=== PATIENT | female | born 1970 | race African-American/Black ===

== ENCOUNTER 2021-12-28 09:27 | Emergency (ER) | payer SELFPAY ==
[2021-12-28 10:15] VITALS: BP 195/103; PULSE 87; RESP 15; O2SAT 97
--- NOTE | 2021-12-28 10:30 | PC.PHAR ---
pt states she is on her last day of her metformin 500mg bid and lisinopril 20mg daily-pt states she has been out for months on the atorvastatin 10mg hs (ext shows 09/01/21)-glipizide 10mg bid-amlodipine 5mg daily-and hctz 25mg daily ext med history shows last filled 07/03/21 for 30d/s-pt states she buys her insulin at [facility]-pt states since she has been out of the hctz she has been buying otc water pill from [facility]-notes are made in the pharmacy comments
--- NOTE | 2021-12-28 11:03 | ED_ITS ---
HPI - Recheck/Abnormal Lab/Rx General: Chief Complaint: Recheck/Abnormal Lab/Rx Stated Complaint: RX Refill Time Seen by Provider: 12/28/21 09:33 History of Present Illness: Ms. Ceja is a 51-year-old lady with history of hypertension, hyperlipidemia, diabetes who presents to the emergency department due to dental pain and need for medication refill. Dental issues have been longstanding for the patient however pain has been worse for a few days. Mild to moderate in intensity worse with eating. Primarily lower molar region of the mandible. No trismus, fevers, spread of symptoms. Has not seen a dentist in some time. Additionally patient reports that she is currently in town traveling for work and therefore has not been to her PCP for medication refill. She is having difficulty obtaining insurance. She will be in town here another few weeks and then going to [place]. Denies headaches or chest pain associated with high blood pressure. Denies signs of DKA. No other specific changes in health, exacerbating, or alleviating factors identified. Returns today for: request for prescription Symptoms since prior visit: no new symptoms Review of Systems General: Reports: 10 or more systems reviewed and unremarkable except in HPI and below PFSH ED PFSH: Medical History Diabetes Hyperlipidemia Hypertension Physical Exam Const: COMMON NORMALS: alert GENERAL APPEARANCE: cooperative and well developed HENMT: COMMON NORMALS: normocephalic and atraumatic HEAD & SCALP: normocephalic and atraumatic THROAT: posterior oropharynx normal OTHER: Poor dentition with multiple dental caries and severely eroded teeth. Posterior left mandibular molars with localized gum irritation concerning for infection as sociated with dental caries. No obvious drainable fluid collection or abscess. Eye: COMMON NORMALS: conjunctivae normal CONJUNCTIVA: Yes conjunctivae normal SCLERA: sclerae normal Neck/C-Spine: COMMON NORMALS: supple GENERAL: Yes trachea midline Resp: COMMON NORMALS: normal respiratory effort and clear to auscultation bilaterally EFFORT & INSPECTION: Yes able to speak in complete sentences AUSCULTATION: clear to auscultation bilaterally Cardio: COMMON NORMALS: regular rate and regular rhythm RATE: regular rate RHYTHM: regular rhythm GI: COMMON NORMALS: Soft to palpation PALPATION: Yes Soft to palpation and No Tenderness to palpation present (GI) Extremity: GENERAL: Yes normal exam except as noted and No edema Neuro: COMMON NORMALS: moves all extremities SENSORIUM/ORIENTATION: Yes alert and No Orientation impaired Psych: COMMON NORMALS: mental status grossly normal and Normal thought process present THOUGHT PROCESS: Normal thought process present Course Vital Signs: Vital signs: Vital Signs Pulse Rate 81 12/28/21 11:51 Respiratory Rate 15 12/28/21 11:51 Blood Pressure 158/77 12/28/21 11:51 Pulse Oximetry 99 12/28/21 11:51 MDM - Recheck/Abnormal Lab/Rx Medical Decision Making 51-year-old lady presenting for concern over medication refill and dental caries. Challenging situation as the patient has been on the road for multiple months for work. Typically she is from [place] and doctors there. She reports difficulty getting insurance and establishing with a primary care provider given her travel. Denies symptoms associated with uncontrolled hypertension or uncontrolled diabetes. I reinforced the need for PCP follow-up however I believe that this will continue to be a challenge and therefore will refill 1 month supply of patient medications. Satisfactory for continued outpatient management. Medical Records I reviewed the patient's medical records. Lab Data I reviewed the patient's lab results. Discharge Plan Discharge Patient Disposition: Home Clinical Impression: Infected dental caries, Encounter for medication refill Condition: Stable Prescriptions: New amoxicillin-pot clavulanate 875-125 mg tablet 1 tab PO BID Qty: 14 0RF Continued metformin 500 mg tablet 500 mg PO BID 30 Days Qty: 60 0RF atorvastatin 10 mg tablet 10 mg PO BEDTIME 30 Days Qty: 30 0RF Rx Instructions: pt states been out for around 2 months lisinopril 20 mg tablet 20 mg PO QAM 30 Days Qty: 30 0RF glipizide 10 mg tablet 10 mg PO BID 30 Days Qty: 60 0RF Rx Instructions: pt states been out for months amlodipine 5 mg tablet 5 mg PO DAILY 30 Days Qty: 30 0RF Rx Instructions: pt states been out for months aspirin 81 mg Tablet,Delayed Release (Dr/Ec) 81 mg PO QAM 30 Days Qty: 30 0RF Fiber-Tabs 625 mg Tablet 625 mg PO DAILY 30 Days Qty: 30 0RF hydrochlorothiazide 25 mg tablet 25 mg PO DAILY 30 Days Qty: 30 0RF Rx Instructions: pt states been out for months Diurex 162.5-50 mg Tablet 1 tab PO QAM 30 Days Qty: 30 0RF Relion Novolin R 20 unit SUBCUT BID 30 Days Qty: 1200 0RF Rx Instructions: before breakfast and dinner Discharge Orders: Discharge ED (Routine); Ordered 12/28/21 Ordered By: Edu Jamil Discharge Diet: Usual diet Discharge Activity: Increase activity as tolerated Patient Instructions: Toothache (ED), Hypertension and Diabetes (ED) Activity Restrictions/Additional Instructions: Thank you for visiting the emergency department. You were seen and evaluated for need of medication refills at [facility]. The tooth ache does appear to have mild amount of local infection and you will be treated with antibiotics. I will refill your prescriptions for the chronic medications that you take. It is essential that you establish and follow-up with your primary care provider as many of these medications require long-term monitoring I recommend having blood work drawn in 1 week to ensure that your kidney function and electrolytes are normal. Given that you have been out of some of these medications please be cautious when restarting them as multiple medications can have interactions as well as cause lower blood pressure and blood sugar. Please ensure that you are checking your blood sugar at least twice daily. Please be extra cautious regarding the combination of diabetes medications to ensure that your blood sugar does not become too low. Please return to the emergency department for lightheadedness, dizziness, chest pain, shortness of breath, decreased or increased urine output, increased thirst or hunger, or anything else that you are concerned about and feel needs emergency department evaluation. 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
[2021-12-28 11:51] VITALS: BP 158/77; PULSE 81; RESP 15; O2SAT 99
== END 2021-12-28 11:53 | disposition home or self-care (01) ==
PROVIDERS: Emergency Provider Emergency Medicine
DX: Z76.0 Encounter for issue of repeat prescription (principal); K02.9 Dental caries, unspecified; K04.7 Periapical abscess without sinus; Z79.82 Long term (current) use of aspirin; E11.9 Type 2 diabetes mellitus without complications; E78.5 Hyperlipidemia, unspecified; I10 Essential (primary) hypertension; Z79.4 Long term (current) use of insulin
CPT/HCPCS: 99283